=== PATIENT | female | born 1985 | race Hispanic/Latino ===

== ENCOUNTER 2018-09-23 12:56 | Inpatient (IN) | payer OTHER, MEDICAID | END 2018-09-26 12:25 | disposition home or self-care (01) | LOC: EDH 12:56 → EDHIP 12:57 → WSH 20:43 | DX: N83.209 Unspecified ovarian cyst, unspecified side (principal); D62 Acute posthemorrhagic anemia; R10.31 Right lower quadrant pain ==

== ENCOUNTER → 2021-12-03 | Outpatient (CLI) | payer MEDICAID ==
[~2021-12-03] MED LIST: CEPH-578 PO; FERS325 PO; PANT40TA55 PO
== END | disposition home or self-care (01) ==
LOC: SLP 20:25
PROVIDERS: ATTEND Internal Medicine Critical Care Medicine
DX: Z01.818 Encounter for other preprocedural examination (principal); E66.01 Morbid (severe) obesity due to excess calories; D50.0 Iron deficiency anemia secondary to blood loss (chronic); G47.33 Obstructive sleep apnea (adult) (pediatric)
CPT/HCPCS: 95810